=== PATIENT | male | born 1970 | race Caucasian/White ===

== ENCOUNTER 2018-12-26 11:55 | Inpatient (IN) | payer OTHER ==
[2018-12-26 14:59] VITALS: BMI 28.7
--- NOTE | 2018-12-26 18:16 | HP ---
CIWA Score Nausea/Vomitin (vomiting x 2) Muscle Tremors: 4-Moderate,w/Arms Extend Anxiety: 4-Mod. Anxious/Guarded Agitation: 4-Moderately Restless Paroxysmal Sweats: 3 Orientation: 0-Oriented Tacttile Disturbances: 0-None Auditory Disturbances: 0-None Visual Disturbances: 0-None Headache: 0-None Present CIWA-Ar Total Score: 17 - Admission Criteria OASAS Guidelines: Admission for Medically Managed Detox: Requires at least one of the followin. CIWA greater than 12 2. Seizures within the past 24 hours 3. Delirium tremens within the past 24 hours 4. Hallucinations within the past 24 hours 5. Acute intervention needed for co occurring medical disorder 6. Acute intervention needed for co occurring psychiatric disorder 7. Severe withdrawal that cannot be handled at a lower level of care (continued vomiting, continued diarrhea, abnormal vital signs) requiring intravenous medication and/or fluids 8. Admission ROS [facility] - [facility] Chief Complaint: Alcohol withdrawal symptoms Allergies/Adverse Reactions: Allergies Allergy/AdvReac Type Severity Reaction Status Date / Time No Known Allergies Allergy Verified 12/26/18 14:56 History of Present Illness: 48 years old male male with 30 years of alcohol dependence is seeking admission to detox. Patient has been in previous detox and reports insignificant period of sobriety. He states that he had blackouts from alcohol intoxication. He denies past medical history, suicide attempt and suicidal ideation at this time. This is his first admission to [facility] Exam Limitations: No Limitations - Ebola screening Have you traveled outside of the country in the last 21 days: No (N) Have you had contact with anyone from an Ebola affected area: No Do you have a fever: No - Review of Systems Constitutional: Chills, Loss of Appetite, Malaise, Night Sweats, Changes in sleep EENT: reports: No Symptoms Reported Respiratory: reports: No Symptoms reported Cardiac: reports: No Symptoms Reported GI: reports: Diarrhea, Nausea, Poor Fluid Intake, Abdominal cramping : reports: No Symptoms Reported Musculoskeletal: reports: Back Pain Integumentary: reports: Dryness, Flushing Neuro: reports: Tremors Endocrine: reports: No Symptoms Reported Hematology: reports: No Symptoms Reported Psychiatric: reports: Orientated x3, Anxious Other Systems: Reviewed and Negative Patient History - Patient Medical History Hx Anemia: No Hx Asthma: No Hx Chronic Obstructive Pulmonary Disease (COPD): No Hx Cancer: No Hx Cardiac Disorders: No Hx Congestive Heart Failure: No Hx Hypertension: No Hx Hypercholesterolemia: No Hx Pacemaker: No HX Cerebrovascular Accident: No Hx Seizures: No Hx Dementia: No Hx Diabetes: No Hx Gastrointestinal Disorders: No Hx Liver Disease: No Hx Genitourinary Disorders: No Hx Sexually Transmitted Disorders: No Hx Renal Disease (ESRD): No Hx Thyroid Disease: No Hx Human Immunodeficiency Virus (HIV): No (Negative 2019) Hx Hepatitis C: No Hx Depression: No Hx Suicide Attempt: No (Denies suicide attempt/suicidal ideation at this time) Hx Bipolar Disorder: No Hx Schizophrenia: No - Patient Surgical History Past Surgical History: Yes Hx Appendectomy: Yes (At age 5) - PPD History Previous Implant?: Yes Documented Results: Negative w/o proof Implanted On Prior [facility] Admission?: No PPD to be Administered?: Yes - Reproductive History Patient is a Female of Child Bearing Age (11 -55 yrs old): No (male) - Smoking Cessation Smoking history: Current every day smoker Have you smoked in the past 12 months: Yes Aproximately how many cigarettes per day: 5 Hx Chewing Tobacco Use: No Initiated information on smoking cessation: Yes 'Breaking Loose' booklet given: 12/26/18 - Substance & Tx. History Hx Alcohol Use: Yes Hx Substance Use: Yes Substance Use Type: Alcohol, Cocaine, Marijuana Hx Substance Use Treatment: Yes ([facility]) - Substances abused Alcohol Substance route: Oral Frequency: Daily Amount used: 2 ( 6packs) Age of first use: 18 Date of last use: 12/25/18 Family Disease History - Family Disease History Family History: Denies Admission Physical Exam [facility] - Vital Signs Vital Signs: Vital Signs - 24 hr 12/26/18 12/26/18 14:56 17:26 Temperature 97.7 F 97.7 F Pulse Rate 78 78 Respiratory 78 H 78 H Rate Blood Pressure 132/80 132/80 - Physical General Appearance: Yes: Moderate Distress, Tremorous, Irritable, Sweating HEENTM: Yes: Within Normal Limits Respiratory: Yes: Lungs Clear, Normal Breath Sounds, No Respiratory Distress Neck: Yes: Supple Breast: Yes: Breast Exam Deferred Cardiology: Yes: Regular Rhythm, Regular Rate Abdominal: Yes: Normal Bowel Sounds Genitourinary: Yes: Within Normal Limits Back: Yes: Normal Inspection Musculoskeletal: Yes: Within Normal Limits Extremities: Yes: Tremors Neurological: Yes: Within Normal Limits, Normal Mood/Affect Integumentary: Yes: Warm Lymphatic: Yes: Within Normal Limits - Diagnostic (1) Alcohol dependence with uncomplicated withdrawal Current Visit: Yes Status: Acute (2) Nicotine dependence Current Visit: Yes Status: Chronic Qualifiers: Nicotine product type: cigarettes Substance use status: uncomplicated Qualified Code(s): F17.210 - Nicotine dependence, cigarettes, uncomplicated (3) Cannabis abuse, uncomplicated Current Visit: Yes Status: Chronic (4) Cocaine abuse, uncomplicated Current Visit: Yes Status: Chronic Cleared for Admission S - Detox or Rehab [facility] Level of Care: Medically Managed Detox Regimen/Protocol: Librium Breathalyzer - Breathalyzer Breathalyzer: 0 Urine Drug Screen - Test Device Lot number: [id number] Expiration date: 08/26/20 - Control Is test valid?: Yes - Results Drug screen NEGATIVE: No Urine drug screen results: THC-Marijuana, KLARISSA-Cocaine Inpatient Rehab Admission - Rehab Decision to Admit Inpatient rehab admission?: No
[2018-12-26] MEDS ORDERED: MAGNESIUM HYDROX 2400MG/30ML ORAL SUSPENSION 30 ML CUP PO PRN (18:23)
[2018-12-26] MEDS ORDERED: ACETAMINOPHEN 325 MG TABLET (FP) PO PRN ×2 (18:23)
[2018-12-26] MEDS ORDERED: METHOCARBAMOL 500 MG TABLET PO PRN (18:23)
[2018-12-26] MEDS ORDERED: hydrOXYzine PAMOATE 25 MG CAPSULE (FP) PO PRN (18:23)
[2018-12-26] MEDS ORDERED: MAGNESIUM CITRATE 300 ML BOTTLE PO PRN (18:23)
[2018-12-26] MEDS ORDERED: BISMUTH SUBSALICYLATE 524 MG/30 ML UD PO PRN (18:23)
[2018-12-26] MEDS ORDERED: IBUPROFEN 400 MG TABLET (FP) PO PRN (18:23)
[2018-12-26] MEDS ORDERED: MAG HYDROX/AL HYDROX/SIMETH 30 ML UNIT-DOSE CUP PO PRN (18:23)
[2018-12-26] MEDS ORDERED: MENTHOL/PHENOL 1 EACH UD MM PRN (18:23)
[2018-12-26] MEDS ORDERED: NICOTINE POLACRILEX 2 MG GUM BUC PRN (18:23)
[2018-12-26] MEDS ORDERED: chlordiazePOXIDE HCL 25 MG CAPSULE PO PRN (18:23)
[2018-12-26] MEDS: chlordiazePOXIDE HCL 25 MG CAPSULE PO SCH (23:53)
[2018-12-26] MEDS: THIAMINE HCL 100 MG TABLET (FP) PO SCH (23:53)
[2018-12-27] MEDS: chlordiazePOXIDE HCL 25 MG CAPSULE PO SCH ×4 (05:17→22:16)
[2018-12-27] MEDS: NICOTINE 14 MG/24 HOURS TOPICAL PATCH TD SCH (10:22)
[2018-12-27] MEDS: PRENATAL VITAMINS W/ FOLIC ACID TABLET (FP) PO SCH (10:22)
[2018-12-27 10:34] LABS: ALBUMIN 3.2 g/dl (3.4-5.0); BILIRUBIN,TOTAL 0.5 mg/dL (0.2-1); BLOOD UREA NITROGEN 13.3 mg/dL (7-18); CREATININE 0.9 mg/dL (0.55-1.3); POTASSIUM 3.7 mmol/L (3.5-5.1); TOT PROT 6.7 g/dl (6.4-8.2)
[2018-12-27 10:50] LABS: HEMATOCRIT 40.8 % (35.4-49); HEMOGLOBIN 13.5 GM/dL (11.7-16.9); MCH 29.1 pg (25.7-33.7); MCHC 33.1 g/dl (32.0-35.9); MEAN CELL VOLUME 87.9 fl (80-96); MEAN PLT VOLUME 10.6 fl (7.5-11.1); PLATELET COUNT 250 K/MM3 (134-434); RBC 4.64 M/mm3 (4.00-5.60); RDW 14.1 % (11.9-15.9); WHITE BLOOD COUNT 5.5 K/mm3 (4.0-10.0)
--- NOTE | 2018-12-27 13:15 | PN ---
[facility] CIWA - CIWA Score Nausea/Vomitin-No Nausea/No Vomiting Muscle Tremors: 3 Anxiety: 2 Agitation: 3 Paroxysmal Sweats: 3 Orientation: 0-Oriented Tacttile Disturbances: 0-None Auditory Disturbances: 0-None Visual Disturbances: 0-None Headache: 0-None Present CIWA-Ar Total Score: 11 S Progress Note (SOAP) Subjective: sweats mild shakes agitation Objective: 12/27/18 13:14 Vital Signs Temperature 97.7 F 12/27/18 13:06 Pulse Rate 83 12/27/18 13:06 Respiratory Rate 18 12/27/18 13:06 Blood Pressure 110/56 L 12/27/18 13:06 O2 Sat by Pulse Oximetry (%) Laboratory Tests 12/27/18 12/27/18 12/27/18 07:00 07:00 07:00 WBC 5.5 RBC 4.64 Hgb 13.5 Hct 40.8 MCV 87.9 MCH 29.1 MCHC 33.1 RDW 14.1 Plt Count 250 MPV 10.6 Sodium 140 Potassium 3.7 Chloride 104 Carbon Dioxide 30 Anion Gap 6 L BUN 13.3 Creatinine 0.9 Est GFR (CKD-EPI)AfAm 116.65 Est GFR (CKD-EPI)NonAf 100.64 Random Glucose 98 Calcium 8.0 L Total Bilirubin 0.5 AST 14 L ALT 30 Alkaline Phosphatase 63 Total Protein 6.7 Albumin 3.2 L RPR Titer Nonreactive labs noted aaox3 ambulating no acute distress Assessment: 12/27/18 13:14 withdrawal sx Plan: continue detox increase fluids
[2018-12-27] MEDS: THIAMINE HCL 100 MG TABLET (FP) PO SCH (22:16)
[2018-12-27] MEDS: MELATONIN 5 MG TABLETS PO PRN (22:16)
[2018-12-28] MEDS: chlordiazePOXIDE HCL 25 MG CAPSULE PO SCH ×3 (06:08→17:48)
[2018-12-28] MEDS: PRENATAL VITAMINS W/ FOLIC ACID TABLET (FP) PO SCH (10:25)
[2018-12-28] MEDS: NICOTINE 14 MG/24 HOURS TOPICAL PATCH TD SCH (10:25)
[2018-12-28] MEDS ORDERED: ONDANSETRON *ODT* 4 MG TABLET SL PRN (11:54)
--- NOTE | 2018-12-28 11:55 | PN ---
[facility] CIWA - CIWA Score Nausea/Vomitin-No Nausea/No Vomiting Muscle Tremors: 4-Moderate,w/Arms Extend Anxiety: 2 Agitation: 3 Paroxysmal Sweats: 2 Orientation: 0-Oriented Tacttile Disturbances: 0-None Auditory Disturbances: 0-None Visual Disturbances: 0-None Headache: 0-None Present CIWA-Ar Total Score: 11 S Progress Note (SOAP) Subjective: nausea agitation sweats body aches Objective: 12/28/18 11:55 Vital Signs Temperature 97.8 F 12/28/18 09:35 Pulse Rate 78 12/28/18 09:35 Respiratory Rate 18 12/28/18 09:35 Blood Pressure 131/83 12/28/18 09:35 O2 Sat by Pulse Oximetry (%) Laboratory Tests 12/27/18 12/27/18 12/27/18 07:00 07:00 07:00 WBC 5.5 RBC 4.64 Hgb 13.5 Hct 40.8 MCV 87.9 MCH 29.1 MCHC 33.1 RDW 14.1 Plt Count 250 MPV 10.6 Sodium 140 Potassium 3.7 Chloride 104 Carbon Dioxide 30 Anion Gap 6 L BUN 13.3 Creatinine 0.9 Est GFR (CKD-EPI)AfAm 116.65 Est GFR (CKD-EPI)NonAf 100.64 Random Glucose 98 Calcium 8.0 L Total Bilirubin 0.5 AST 14 L ALT 30 Alkaline Phosphatase 63 Total Protein 6.7 Albumin 3.2 L RPR Titer Nonreactive labs noted aaox3 ambulating no acute distress Assessment: 12/28/18 11:55 withdrawal sx Plan: continue detox increase fluids rosalba wadsworth prn
--- NOTE | 2018-12-28 13:48 | EKG ---
Test Reason : Blood Pressure : / mmHG Vent. Rate : 065 BPM Atrial Rate : 065 BPM P-R Int : 124 ms QRS Dur : 090 ms QT Int : 432 ms P-R-T Axes : 013 037 030 degrees QTc Int : 449 ms NORMAL SINUS RHYTHM NORMAL ECG NO PREVIOUS ECGS AVAILABLE Confirmed by MD CEDRIC, COLT ([id number]) on 12/28/2018 1:47:49 PM Referred By: Confirmed By:COLT STEELE MD
[2018-12-28] MEDS: THIAMINE HCL 100 MG TABLET (FP) PO SCH (22:22)
[2018-12-28] MEDS: MELATONIN 5 MG TABLETS PO PRN (22:22)
[2018-12-28] MEDS: chlordiazePOXIDE HCL 10 MG CAPSULE PO SCH (22:23)
[2018-12-28] MEDS ORDERED: chlordiazePOXIDE HCL 10 MG CAPSULE PO PRN (23:00)
[2018-12-29] MEDS: chlordiazePOXIDE HCL 10 MG CAPSULE PO SCH ×4 (06:21→22:23)
[2018-12-29] MEDS: PRENATAL VITAMINS W/ FOLIC ACID TABLET (FP) PO SCH (10:33)
[2018-12-29] MEDS: NICOTINE 14 MG/24 HOURS TOPICAL PATCH TD SCH (10:35)
--- NOTE | 2018-12-29 13:40 | PN ---
[facility] CIWA - CIWA Score Nausea/Vomitin-No Nausea/No Vomiting Muscle Tremors: 2 Anxiety: 3 Agitation: 2 Paroxysmal Sweats: 1-Minimal Palms Moist Orientation: 0-Oriented Tacttile Disturbances: 0-None Auditory Disturbances: 0-None Visual Disturbances: 0-None Headache: 0-None Present CIWA-Ar Total Score: 8 [facility] Progress Note (SOAP) Subjective: C/O MILD WITHDRAWAL SX-ANXIETY, SWEATS,TREMORS. Objective: 12/29/18 13:39 Vital Signs 12/29/18 12/29/18 12/29/18 08:16 09:36 13:20 Temperature 98.2 F 97.8 F 96.9 F L Pulse Rate 72 88 91 H Respiratory 18 18 18 Rate Blood Pressure 128/60 120/64 115/73 Laboratory Tests 12/27/18 12/27/18 12/27/18 07:00 07:00 07:00 WBC 5.5 RBC 4.64 Hgb 13.5 Hct 40.8 MCV 87.9 MCH 29.1 MCHC 33.1 RDW 14.1 Plt Count 250 MPV 10.6 Sodium 140 Potassium 3.7 Chloride 104 Carbon Dioxide 30 Anion Gap 6 L BUN 13.3 Creatinine 0.9 Est GFR (CKD-EPI)AfAm 116.65 Est GFR (CKD-EPI)NonAf 100.64 Random Glucose 98 Calcium 8.0 L Total Bilirubin 0.5 AST 14 L ALT 30 Alkaline Phosphatase 63 Total Protein 6.7 Albumin 3.2 L RPR Titer TB (QFT) Incubation TB Test (QFT) Nil 0.03 TB Test (QFT) Mitogen >10.00 TB Test (QFT) Antigen 0.04 TB Test (QFT) Negative TB Positive Criteria 12/27/18 07:00 WBC RBC Hgb Hct MCV MCH MCHC RDW Plt Count MPV Sodium Potassium Chloride Carbon Dioxide Anion Gap BUN Creatinine Est GFR (CKD-EPI)AfAm Est GFR (CKD-EPI)NonAf Random Glucose Calcium Total Bilirubin AST ALT Alkaline Phosphatase Total Protein Albumin RPR Titer Nonreactive TB (QFT) Incubation TB Test (QFT) Nil TB Test (QFT) Mitogen TB Test (QFT) Antigen TB Test (QFT) TB Positive Criteria Assessment: 12/29/18 13:39 WITHDRAWAL SX Plan: CONTINUE DETOX
[2018-12-29] MEDS: THIAMINE HCL 100 MG TABLET (FP) PO SCH (22:23)
[2018-12-30] MEDS: NICOTINE 14 MG/24 HOURS TOPICAL PATCH TD SCH (10:10)
[2018-12-30] MEDS: PRENATAL VITAMINS W/ FOLIC ACID TABLET (FP) PO SCH (10:10)
[2018-12-30] MEDS: chlordiazePOXIDE HCL 10 MG CAPSULE PO SCH ×2 (10:10→22:10)
--- NOTE | 2018-12-30 10:34 | PN ---
[facility] CIWA - CIWA Score Nausea/Vomitin-No Nausea/No Vomiting Muscle Tremors: 2 Anxiety: 1-Mildly Anxious Agitation: 0-Normal Activity Paroxysmal Sweats: 2 Orientation: 0-Oriented Tacttile Disturbances: 0-None Auditory Disturbances: 0-None Visual Disturbances: 0-None Headache: 2-Mild CIWA-Ar Total Score: 7 [facility] Progress Note (SOAP) Subjective: c/o headache, mild anxiety, and sweats. Objective: 12/30/18 10:34 Vital Signs 12/30/18 12/30/18 12/30/18 03:30 06:00 09:25 Temperature 98.1 F 98.4 F Pulse Rate 78 82 Respiratory 18 18 18 Rate Blood Pressure 115/75 115/60 Assessment: 12/30/18 10:34 AOX3, in no acute respiratory distress Full ROM, ambulating in the unit. mild withdrawal symptoms. Plan: continue detox.
[2018-12-30] MEDS: MELATONIN 5 MG TABLETS PO PRN (22:10)
[2018-12-30] MEDS: THIAMINE HCL 100 MG TABLET (FP) PO SCH (22:10)
--- NOTE | 2018-12-31 09:05 | DS ---
[facility] Detox Discharge Summary Admission Date: 12/26/18 Discharge Date: 12/31/18 - History Present History: Alcohol Dependence, Cannabis Dependence, Cocaine Dependence - Physical Exam Results Vital Signs: Vital Signs Temperature 97.2 F L 12/31/18 06:40 Pulse Rate 76 12/31/18 06:40 Respiratory Rate 16 12/31/18 06:40 Blood Pressure 115/70 12/31/18 06:40 O2 Sat by Pulse Oximetry (%) - Treatment Hospital Course: Detox Protocol Followed, Detoxed Safely, Responded well, Discharged Condition Good - Medication Discharge Medications: Ambulatory Orders NK [No Known Home Medication] 12/26/18 - Diagnosis (1) Alcohol dependence with uncomplicated withdrawal Current Visit: Yes Status: Chronic (2) Cannabis abuse, uncomplicated Current Visit: Yes Status: Chronic (3) Cocaine abuse, uncomplicated Current Visit: Yes Status: Chronic (4) Nicotine dependence Current Visit: Yes Status: Chronic Qualifiers: Nicotine product type: cigarettes Substance use status: uncomplicated Qualified Code(s): F17.210 - Nicotine dependence, cigarettes, uncomplicated - AMA Did Patient Leave Against Medical Advice: No
[2018-12-31] MEDS: NICOTINE 14 MG/24 HOURS TOPICAL PATCH TD SCH (10:35)
[2018-12-31] MEDS: PRENATAL VITAMINS W/ FOLIC ACID TABLET (FP) PO SCH (10:35)
[2018-12-31 14:08] VITALS: BP 126/64; PULSE 86; TEMP 97.6
== END 2018-12-31 13:50 | disposition other institution (70) | DRG 774 ==
LOC: YASAS 11:55 → Y6N 18:04
PROVIDERS: ADMIT Surgery; ATTEND Surgery
PROC: HZ2ZZZZ Detoxification Services for Substance Abuse Treatment (ICD-10-PCS; principal; 2018-12-26)
DX: F10.230 Alcohol dependence with withdrawal, uncomplicated (principal); F14.20 Cocaine dependence, uncomplicated; F12.20 Cannabis dependence, uncomplicated; F17.210 Nicotine dependence, cigarettes, uncomplicated
CPT/HCPCS: 36415; 80053; 85027; 86480; 86593; 93005; 93010

== ENCOUNTER 2018-12-31 14:00 | Inpatient (IN) | payer OTHER ==
[2018-12-31] MEDS ORDERED: guaiFENesin 200 MG/10 ML 10 ML UNIT-DOSE CUPS PO PRN (15:46)
[2018-12-31] MEDS ORDERED: MENTHOL/PHENOL 1 EACH UD MM PRN (15:46)
[2018-12-31] MEDS ORDERED: MAG HYDROX/AL HYDROX/SIMETH 30 ML UNIT-DOSE CUP PO PRN (15:46)
[2018-12-31] MEDS ORDERED: P-EPHED 60MG/TRIPROLIDI 2.5MG TABLET PO PRN (15:46)
[2018-12-31] MEDS ORDERED: IBUPROFEN 400 MG TABLET (FP) PO PRN (15:46)
[2018-12-31] MEDS ORDERED: MAGNESIUM CITRATE 300 ML BOTTLE PO PRN (15:46)
[2018-12-31] MEDS ORDERED: MAGNESIUM HYDROX 2400MG/30ML ORAL SUSPENSION 30 ML CUP PO PRN (15:46)
[2018-12-31] MEDS ORDERED: ACETAMINOPHEN 325 MG TABLET (FP) PO PRN (15:46)
[2018-12-31] MEDS ORDERED: LOPERAMIDE HCL 2 MG CAPSULE PO PRN (15:46)
[2018-12-31] MEDS: THIAMINE HCL 100 MG TABLET (FP) PO SCH (21:33)
[2018-12-31] MEDS: hydrOXYzine PAMOATE 25 MG CAPSULE (FP) PO PRN (21:33)
[2018-12-31] MEDS: MELATONIN 5 MG TABLETS PO PRN (21:34)
[2019-01-01] MEDS: PRENATAL VITAMINS W/ FOLIC ACID TABLET (FP) PO SCH (10:24)
[2019-01-01] MEDS: MELATONIN 5 MG TABLETS PO PRN (21:35)
[2019-01-01] MEDS: hydrOXYzine PAMOATE 25 MG CAPSULE (FP) PO PRN (21:35)
[2019-01-01] MEDS: THIAMINE HCL 100 MG TABLET (FP) PO SCH (21:35)
[2019-01-02] MEDS ORDERED: PT OWN MED DRAWER 7, Y5N ONE (08:34)
[2019-01-02] MEDS: PRENATAL VITAMINS W/ FOLIC ACID TABLET (FP) PO SCH (10:42)
[2019-01-02] MEDS: hydrOXYzine PAMOATE 25 MG CAPSULE (FP) PO PRN (21:26)
[2019-01-02] MEDS: THIAMINE HCL 100 MG TABLET (FP) PO SCH (21:26)
[2019-01-02] MEDS: MELATONIN 5 MG TABLETS PO PRN (21:27)
[2019-01-03] MEDS: PRENATAL VITAMINS W/ FOLIC ACID TABLET (FP) PO SCH (10:32)
[2019-01-03] MEDS ORDERED: SUVOREXANT 10 MG TABLET PO PRN (13:27)
--- NOTE | 2019-01-03 13:30 | PN ---
[facility] Progress Note Note: Patient seen for c/o insomnia. Patient has hx of cocaine use disorder. Vital Signs Temperature 98 F 01/03/19 06:47 Pulse Rate 80 01/03/19 06:47 Respiratory Rate 18 01/03/19 06:47 Blood Pressure 113/63 01/03/19 06:47 O2 Sat by Pulse Oximetry (%) PE alert and oriented x 3 skin warm and dry +perrla, eoms intact bl A/P: insomnia will order Belsomra 10mg hs prn monitor clinically
[2019-01-03] MEDS: MELATONIN 5 MG TABLETS PO PRN (22:20)
[2019-01-03] MEDS: THIAMINE HCL 100 MG TABLET (FP) PO SCH (22:37)
[2019-01-04] MEDS: PRENATAL VITAMINS W/ FOLIC ACID TABLET (FP) PO SCH (10:41)
--- NOTE | 2019-01-04 14:46 | PN ---
S Progress Note (SOAP) Subjective: C/o insomnia; unable to sleep. Was prescribed Belsoma, but states it does not work he was not able to fall asleep and was restless all night. Reports that insomnia is a result of years of using crack cocaine. Objective: A+O x3, no neurological deficits noted. PERRLA. 01/04/19 14:43 01/04/19 14:44 Vital Signs (72 hours) 01/02/19 01/02/19 01/03/19 03:30 06:59 03:30 Temperature 98.2 F Pulse Rate 85 Respiratory 18 18 18 Rate Blood Pressure 97/61 01/03/19 01/04/19 01/04/19 06:47 00:30 03:30 Temperature 98 F Pulse Rate 80 Respiratory 18 18 18 Rate Blood Pressure 113/63 01/04/19 07:08 Temperature 97.6 F Pulse Rate 79 Respiratory 18 Rate Blood Pressure 101/71 Assessment: Insomnia 01/04/19 14:43 Plan: Increased melatonin to 10 mg. Continue to monitor and will refer for psych consult if insomnia does not resolve.
[2019-01-04] MEDS: THIAMINE HCL 100 MG TABLET (FP) PO SCH (21:18)
[2019-01-04] MEDS: MELATONIN 5 MG TABLETS PO PRN (21:19)
[2019-01-05] MEDS: PRENATAL VITAMINS W/ FOLIC ACID TABLET (FP) PO SCH (10:46)
--- NOTE | 2019-01-05 15:35 | PN ---
S Progress Note (SOAP) Subjective: patient fell-slipped on wet floor. Unwitnessed. C/o pain in left wrist and a headache. Objective: ARM: Pain on flexion of left wrist. No swelling noted. HEAD/Neuro: eyes PERRLA, A+O x3, no neurological deficits noted. 01/05/19 15:31 Assessment: Unwitnessed fall, 01/05/19 15:33 Plan: Protocol 1 for unwitnessed fall was initiated. Report was given to Dr. Pate at [facility] ER. Patient will be transferred to ER for evaluation.
--- NOTE | 2019-01-05 16:07 | CONSULT ---
[facility] Psychiatric Consult - Data Date of interview: 01/05/19 Admission source: 6N Identifying data: Mr Montes De Oca is a 48 years old single male, father of, unemployed seeking detox treatment for alcohol Substance Abuse History: Reports history of alcohol use. Refer to addiction counselor's summary for further information Medical History: Significant for history of appendectomy at age 5. Smokes 5 cigarettes daily
[2019-01-05] MEDS: THIAMINE HCL 100 MG TABLET (FP) PO SCH (22:09)
[2019-01-05] MEDS: MELATONIN 5 MG TABLETS PO PRN (22:09)
[2019-01-05] MEDS: IBUPROFEN 600 MG TABLET (FP) PO PRN (23:17)
--- NOTE | 2019-01-06 10:17 | PN ---
S Progress Note (SOAP) Subjective: Patient was sent to ER yesterday after unwitnessed fall in which he hit his head and left wrist. He was evaluated in the ER and returned with a brace to left lower arm. Objective: PE; skin, clear, no ecchymotic areas, some swelling around wrist and thumb area. Brisk capillary refill all fingers of left had. Full ROM fingers and thumb. Wrist stabilized by a brace. Slight tenderness on palpation, anterior, medial aspect between thumb and first finger. 01/06/19 10:14 Assessment: Left wrist injury 01/06/19 10:16 Plan: Continue to monitor, advised patient to inform nurses or this provider if he experiences pain or changes in color of left hand, wrist, or thumb.
[2019-01-06] MEDS: PRENATAL VITAMINS W/ FOLIC ACID TABLET (FP) PO SCH (10:23)
[2019-01-06] MEDS: IBUPROFEN 600 MG TABLET (FP) PO PRN ×2 (10:24→21:39)
[2019-01-06] MEDS: SUVOREXANT 10 MG TABLET PO PRN (21:39)
[2019-01-06] MEDS: MELATONIN 5 MG TABLETS PO PRN (21:39)
[2019-01-06] MEDS: THIAMINE HCL 100 MG TABLET (FP) PO SCH (21:39)
[2019-01-07] MEDS: PRENATAL VITAMINS W/ FOLIC ACID TABLET (FP) PO SCH (10:10)
[2019-01-07] MEDS: IBUPROFEN 600 MG TABLET (FP) PO PRN (21:42)
[2019-01-07] MEDS: MELATONIN 5 MG TABLETS PO PRN (21:43)
[2019-01-07] MEDS: SUVOREXANT 10 MG TABLET PO PRN (21:43)
[2019-01-07] MEDS: THIAMINE HCL 100 MG TABLET (FP) PO SCH (21:43)
[2019-01-08] MEDS: PRENATAL VITAMINS W/ FOLIC ACID TABLET (FP) PO SCH (10:28)
--- NOTE | 2019-01-08 14:08 | PN ---
[facility] Progress Note Note: Psychiatric nurse practitioner note: Belsomra 10mg renewed X3 days. Verbal consent given.
[2019-01-08] MEDS: THIAMINE HCL 100 MG TABLET (FP) PO SCH (21:26)
[2019-01-08] MEDS: SUVOREXANT 10 MG TABLET PO PRN (21:27)
[2019-01-08] MEDS: IBUPROFEN 600 MG TABLET (FP) PO PRN (21:27)
[2019-01-08] MEDS: MELATONIN 5 MG TABLETS PO PRN (21:28)
[2019-01-09] MEDS: PRENATAL VITAMINS W/ FOLIC ACID TABLET (FP) PO SCH (10:49)
[2019-01-09] MEDS: MELATONIN 5 MG TABLETS PO PRN (22:12)
[2019-01-09] MEDS: THIAMINE HCL 100 MG TABLET (FP) PO SCH (22:12)
[2019-01-09] MEDS: SUVOREXANT 10 MG TABLET PO PRN (22:13)
[2019-01-09] MEDS: IBUPROFEN 600 MG TABLET (FP) PO PRN (22:14)
[2019-01-10 07:08] VITALS: BP 141/68; PULSE 69; TEMP 97.7
[2019-01-10] MEDS: PRENATAL VITAMINS W/ FOLIC ACID TABLET (FP) PO SCH (10:38)
--- NOTE | 2019-01-10 12:14 | PN ---
[facility] Progress Note Note: Rehab discharge note: Patient discharged from rehab today after completing 8 days inpatient. Patient states he wants to leave because " I am getting bored here. I have done everything I needed to do." Vital Signs Temperature 97.7 F 01/10/19 07:07 Pulse Rate 69 01/10/19 07:07 Respiratory Rate 18 01/10/19 07:07 Blood Pressure 141/68 01/10/19 07:07 O2 Sat by Pulse Oximetry (%) Patient states he will follow up with outpatient treatment on his own and will attend AA/NA group meetings. Patient explained risk factors of relapse and also encouraged to follow up with PCP within 72 hours of discharge to continue medical management. Patient is medically stable at this time and denies SI/HI. Vital Signs Period Temp Pulse Resp BP Sys/Zaragoza Pulse Ox Last 24 Hr 97.7 F 69 18-18 141/68 Ambulatory Orders NK [No Known Home Medication] 12/26/18
== END 2019-01-10 12:20 | disposition home or self-care (01) | DRG 772 ==
LOC: YASAS 14:00 → Y3W 14:01
PROVIDERS: ADMIT Neuromusculoskeletal Medicine & OMM; ATTEND Neuromusculoskeletal Medicine & OMM
PROC: HZ42ZZZ Group Counseling for Substance Abuse Treatment, Cognitive-Behavioral (ICD-10-PCS; principal; 2018-12-31)
DX: F10.20 Alcohol dependence, uncomplicated (principal); F14.10 Cocaine abuse, uncomplicated; F12.10 Cannabis abuse, uncomplicated; F17.210 Nicotine dependence, cigarettes, uncomplicated; G47.00 Insomnia, unspecified; R51 Headache; S69.92XA Unspecified injury of left wrist, hand and finger(s), initial encounter; W18.39XA Other fall on same level, initial encounter; Y93.9 Activity, unspecified; Y92.239 Unspecified place in hospital as the place of occurrence of the external cause

== ENCOUNTER 2019-01-05 17:19 | Emergency (ER) | payer OTHER ==
[2019-01-05] MEDS ORDERED: ACETAMINOPHEN 500 MG TABLET (FP) PO ONE (17:25)
--- NOTE | 2019-01-05 17:25 | PDOC ---
Rapid Medical Evaluation Time Seen by Provider: 01/05/19 17:20 Medical Evaluation: Allergies Allergy/AdvReac Type Severity Reaction Status Date / Time No Known Allergies Allergy Verified 12/31/18 14:31 01/05/19 17:23 HPI: slip on wet floor no LOC or head trauma c/o L wrist pain PE: No gross deficits L wrist tenderness ORDERS: L wrist x-ray Tylenol 01/05/19 17:25 Discharge Disposition - Diagnosis Left wrist injury - Referrals - Patient Instructions - Post Discharge Activity
[2019-01-05 17:28] VITALS: BP 125/77; PULSE 66; TEMP 98.3; BMI 28.7
[2019-01-05] MEDS ORDERED: ACETAMINOPHEN 500 MG TABLET (FP) ONE (17:36)
--- NOTE | 2019-01-05 19:20 | PDOC ---
History of Present Illness - General Chief Complaint: Injury Stated Complaint: FALL/INJURY Time Seen by Provider: 01/05/19 17:20 History Source: Patient Exam Limitations: No Limitations Past History - Travel Traveled outside of the country in the last 30 days: No Close contact w/someone who was outside of country & ill: No - Past Medical History Allergies/Adverse Reactions: Allergies Allergy/AdvReac Type Severity Reaction Status Date / Time No Known Allergies Allergy Verified 01/05/19 17:24 Home Medications: Ambulatory Orders NK [No Known Home Medication] 12/26/18 Anemia: No Asthma: No Cancer: No Cardiac Disorders: No CVA: No COPD: No CHF: No Dementia: No Diabetes: No GI Disorders: No Disorders: No HTN: No Hypercholesterolemia: No Liver Disease: No Seizures: No Thyroid Disease: No - Surgical History Appendectomy: Yes (At age 5) - Suicide/Smoking/Psychosocial Hx Smoking History: Unknown if ever smoked Have you smoked in the past 12 months: Yes Number of Cigarettes Smoked Daily: 5 'Breaking Loose' booklet given: 12/26/18 Hx Alcohol Use: Yes Drug/Substance Use Hx: Yes Substance Use Type: Alcohol, Cocaine, Marijuana Hx Substance Use Treatment: Yes ([facility]) Review of Systems - Review of Systems Able to Perform ROS?: Yes Comments:: 01/05/19 19:15 CONSTITUTIONAL: Absent: fever, chills, diaphoresis, generalized weakness, malaise, loss of appetite MUSCULOSKELETAL: Present: L wrist and shoulder pain Absent: myalgia, arthralgia, joint swelling SKIN: Absent: rash, itching, pallor NEUROLOGIC: Absent: headache, focal weakness or paresthesias, dizziness, unsteady gait, seizure, mental status changes, bladder or bowel incontinence PSYCHIATRIC: Absent: anxiety, depression, suicidal or homicidal ideation, hallucinations. Is the patient limited Japanese proficient: No *Physical Exam - Vital Signs Last Vital Signs Temp Pulse Resp BP Pulse Ox 98.3 F 66 16 125/77 99 01/05/19 17:25 01/05/19 17:25 01/05/19 17:25 01/05/19 17:25 01/05/19 17:25 - Physical Exam Comments: 01/05/19 19:17 GENERAL: Well developed, well nourished. Awake and alert. No acute distress. NECK: Supple. Full ROM. No JVD. Carotid pulses 2+ and symmetric, without bruits. No thyromegaly. No lymphadenopathy. MUSCULOSKELETAL Normal range of motion at all joints. No bony deformities or tenderness. No CVA tenderness. EXTREMITIES: TTP of the L distal radius. No snuff box tenderness. L shoulder without pain to palpation. Full ROM of the shoulder. PMS intact to the L arm. No cyanosis. No clubbing. No edema. No calf tenderness. SKIN: Warm and dry. Normal capillary refill. No rashes. No jaundice. NEUROLOGICAL: Alert, awake, appropriate. Cranial nerves 2-12 intact. No deficits to light touch and temperature in face, upper extremities and lower extremities. No motor deficits in the in face, upper extremities and lower extremities. Normoreflexic in the upper and lower extremities. Normal speech. Toes are down- going bilaterally. Gait is normal without ataxia. PSYCHIATRIC: Cooperative. Good eye contact. Appropriate mood and affect. ED Treatment Course - RADIOLOGY Radiology Studies Ordered: Category Date Time Status SHOULDER-W/TRANS-LEFT [RAD] Stat Radiology 01/05/19 18:43 Completed - Medications Given in the ED: ED Medications Discontinued Medications Generic Name Dose Route Start Last Admin Trade Name Freq PRN Reason Stop Dose Admin Acetaminophen 1,000 mg 01/05/19 17:25 01/05/19 17:40 Tylenol - PO 01/05/19 17:26 1,000 mg ONCE ONE Administration Medical Decision Making - Medical Decision Making 01/05/19 19:19 the patient is a 48-year-old male currently in rehab, who presents to the ER today after a [facility]. He states that he slipped on a wet floor and landed on his wrist. Denies hitting his head or losing consciousness. He states that when he brace itself he also felt something in his shoulder snap. Denies fevers, chills, lightheadedness, dizziness, numbness and tingling of weakness to the affected extremity. A/P: Wrist sprain, On exam patient tender to palpation of the distal left radius. No snuffbox tenderness. Decreased range of motion with extension of the left wrist. Shoulder left is intact. Full range of motion, all special testing is negative. Suspect a wrist sprain as the x-ray at this time is negative for fractures. We will place an wrist splint Shoulder x-rays negative for dislocation. Discharge back to [facility] with a prescription for Motrin I discussed the physical exam findings, ancillary test results and final diagnoses with the patient. I answered all of the patient's questions. The patient was satisfied with the care received and felt comfortable with the discharge plan and treatment plan. The Patient agrees to follow up with the primary care physician/specialist within 24-72 hours. Return precautions were given. *DC/Admit/Observation/Transfer Diagnosis at time of Disposition: Left wrist injury Qualifiers: Encounter type: initial encounter Qualified Code(s): S69.92XA - Unspecified injury of left wrist, hand and finger(s), initial encounter - Discharge Dispostion Disposition: HOME Condition at time of disposition: Stable Decision to Admit order: No - Referrals Referrals: Mike Hutchins MD [Staff Physician] - - Patient Instructions Printed Discharge Instructions: DI for Wrist Sprain Additional Instructions: you were evaluated after fall today. Your x-rays of your wrist and shoulder were negative for fractures. Your placed in a wrist splint for wrist sprain of the left wrist. You may take Motrin 600 mg every 6 hours as needed for pain. Wear the splint for comfort. Follow up with orthopedics in 1 week if your symptoms do not improve. Return to the ER for any new or worsening symptoms. - Post Discharge Activity
== END 2019-01-05 21:23 | disposition home or self-care (01) ==
LOC: JERFT 17:19
DX: S69.92XA Unspecified injury of left wrist, hand and finger(s), initial encounter (principal); W01.0XXA Fall on same level from slipping, tripping and stumbling without subsequent striking against object, initial encounter; Y93.89 Activity, other specified; Y92.89 Other specified places as the place of occurrence of the external cause
CPT/HCPCS: 73030-TC-LT-FY; 73110-TC-LT-FY; 99281-25

== ENCOUNTER 2019-01-31 15:54 | Inpatient (IN) | payer OTHER ==
[2019-01-31 23:09] VITALS: BMI 29.4
--- NOTE | 2019-02-01 00:04 | HP ---
CIWA Score Nausea/Vomitin Muscle Tremors: 1-None Visible, but [place] Anxiety: 4-Mod. Anxious/Guarded Agitation: 4-Moderately Restless Paroxysmal Sweats: 3 Orientation: 1-Uncertain about Date Tacttile Disturbances: 0-None Auditory Disturbances: 0-None Visual Disturbances: 2-Mild Sensitivity Headache: 0-None Present CIWA-Ar Total Score: 17 - Admission Criteria OASAS Guidelines: Admission for Medically Managed Detox: Requires at least one of the followin. CIWA greater than 12 2. Seizures within the past 24 hours 3. Delirium tremens within the past 24 hours 4. Hallucinations within the past 24 hours 5. Acute intervention needed for co occurring medical disorder 6. Acute intervention needed for co occurring psychiatric disorder 7. Severe withdrawal that cannot be handled at a lower level of care (continued vomiting, continued diarrhea, abnormal vital signs) requiring intravenous medication and/or fluids 8. Patient presents the following: CIWA greater than 12 Admission Criteria Met: Admission criteria met Admission ROS S - [facility] Chief Complaint: C/O WITHDRAWAL SX'S Allergies/Adverse Reactions: Allergies Allergy/AdvReac Type Severity Reaction Status Date / Time No Known Allergies Allergy Verified 01/31/19 23:03 History of Present Illness: 48 Y.O. MALE WITH ALCOHOLISM HERE FOR DETOX. CLIENT IS SELF REFERRED. KNOW TO PROGRAM AMA FROM REHAB 4 WEEKS AGO AFTER COMPLETING DETOX. CLIENT REPORTS RELAPSING SOON AFTER DC, DRINKING ALCOHOL DAILY. LAST USE THIS MORNING DUE TO WITHDRAWAL SX'S. 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 REPORTS MOST RECENT CLEAN TIME 3 MONTHS RELAPSING 1 MONTH AGO. DENIES HX/O SEIZURES, BLACK OUTS, DT'S. DOMICILED, UNEMPLOYED, DENIES LEGALS PMHX-DENIES PSYCH- DENIES Exam Limitations: No Limitations - Ebola screening Have you traveled outside of the country in the last 21 days: No Have you had contact with anyone from an Ebola affected area: No Have you been sick,other than usual withdrawal symptoms: No Do you have a fever: No - Review of Systems Constitutional: Chills, Loss of Appetite, Malaise, Night Sweats, Changes in sleep EENT: reports: No Symptoms Reported Respiratory: reports: Shortness of Breath Cardiac: reports: No Symptoms Reported GI: reports: Poor Appetite : reports: No Symptoms Reported Musculoskeletal: reports: Back Pain (CHRONIC) Integumentary: reports: Flushing, Sweating Neuro: reports: Tremors Endocrine: reports: No Symptoms Reported Hematology: reports: No Symptoms Reported Psychiatric: reports: Orientated x3, Anxious Other Systems: Reviewed and Negative Patient History - Patient Medical History Hx Anemia: No Hx Asthma: No Hx Chronic Obstructive Pulmonary Disease (COPD): No Hx Cancer: No Hx Cardiac Disorders: No Hx Congestive Heart Failure: No Hx Hypertension: No Hx Hypercholesterolemia: No Hx Pacemaker: No HX Cerebrovascular Accident: No Hx Seizures: No Hx Dementia: No Hx Diabetes: No Hx Gastrointestinal Disorders: No Hx Liver Disease: No Hx Genitourinary Disorders: No Hx Sexually Transmitted Disorders: No Hx Renal Disease (ESRD): No Hx Thyroid Disease: No Hx Human Immunodeficiency Virus (HIV): No (Negative 2018) Hx Hepatitis C: No Hx Depression: No Hx Suicide Attempt: No Hx Bipolar Disorder: No Hx Schizophrenia: No Other Medical History: DENIES - Patient Surgical History Past Surgical History: Yes Hx Appendectomy: Yes (At age 5) - PPD History Previous Implant?: Yes Documented Results: Negative w/o proof Implanted On Prior R Admission?: No Results: 12/2018 NEG TBGO PPD to be Administered?: No - Smoking Cessation Smoking history: Current every day smoker Have you smoked in the past 12 months: Yes Aproximately how many cigarettes per day: 5 Cigars Per Day: 0 Hx Chewing Tobacco Use: No Initiated information on smoking cessation: Yes 'Breaking Loose' booklet given: 02/01/19 - Substance & Tx. History Hx Alcohol Use: Yes Hx Substance Use: Yes Substance Use Type: Alcohol, Cocaine Hx Substance Use Treatment: Yes ([facility]) - Substances abused Alcohol Substance route: Oral Frequency: Daily Amount used: 2 ( 6packs) Age of first use: 18 Date of last use: 01/31/19 Cocaine Substance route: Smoking Frequency: Daily Amount used: $150/day Age of first use: 34 Date of last use: 01/31/19 Family Disease History - Family Disease History Family Disease History: Other: Father (ALCOHOLIC) Admission Physical Exam S - Vital Signs Vital Signs: Vital Signs - 24 hr 01/31/19 23:04 Temperature 97.6 F Pulse Rate 68 Respiratory 18 Rate Blood Pressure 112/73 - Physical General Appearance: Yes: Mild Distress, Tremorous, Anxious HEENTM: Yes: EOMI, Normocephalic, Normal Voice, JEN, Pharynx Normal Respiratory: Yes: Chest Non-Tender, Lungs Clear, Normal Breath Sounds, No Respiratory Distress, No Accessory Muscle Use Neck: Yes: No masses,lesions,Nodules, Supple, Trachea in good position Breast: Yes: Breast Exam Deferred Cardiology: Yes: Regular Rhythm, Regular Rate, S1, S2 Abdominal: Yes: Non Tender, Increased Bowel Sounds Genitourinary: Yes: Within Normal Limits Back: Yes: Normal Inspection Musculoskeletal: Yes: full range of Motion, Gait Steady Extremities: Yes: Normal Capillary Refill, Normal Range of Motion, Non-Tender, Tremors Neurological: Yes: Fully Oriented, Alert, Motor Strength 5/5 Integumentary: Yes: Warm Lymphatic: Yes: Within Normal Limits - Diagnostic (1) Alcohol dependence with uncomplicated withdrawal Current Visit: Yes Status: Acute (2) Cocaine abuse, uncomplicated Current Visit: Yes Status: Acute (3) Nicotine dependence Current Visit: Yes Status: Chronic Qualifiers: Nicotine product type: cigarettes Substance use status: uncomplicated Qualified Code(s): F17.210 - Nicotine dependence, cigarettes, uncomplicated (4) Substance-induced sleep disorder Current Visit: Yes Status: Acute Cleared for Admission [facility] - Detox or Rehab [facility] Level of Care: Medically Managed Detox Regimen/Protocol: Librium Claeared for Rehab Admission: No Breathalyzer - Breathalyzer Breathalyzer: 0 Vital Signs - Vital Signs Vital signs refused: No Temperature: 97.6 F Temperature source: Oral Pulse Rate: 68 Respiratory Rate: 18 Blood Pressure: 112/73 BP Location: Right Arm Blood Pressure position: Sitting - Height Height: 5 ft 10 in - Weight Weight: 92.986 kg Weight measurement method: Standing scale - BMI Body Mass Index (BMI): 29.4 - Bowel Function Bowel Movement: No Urine Drug Screen - Test Device Lot number: [id number] Expiration date: 08/26/20 - Control Is test valid?: Yes - Results Drug screen NEGATIVE: No Urine drug screen results: KLARISSA-Cocaine, BAR-Barbiturates Inpatient Rehab Admission - Rehab Decision to Admit Inpatient rehab admission?: No
[2019-02-01] MEDS ORDERED: MELATONIN 5 MG TABLETS PO PRN (00:09)
[2019-02-01] MEDS ORDERED: ONDANSETRON *ODT* 4 MG TABLET SL PRN (00:09)
[2019-02-01] MEDS ORDERED: IBUPROFEN 400 MG TABLET (FP) PO PRN (00:09)
[2019-02-01] MEDS ORDERED: MAG HYDROX/AL HYDROX/SIMETH 30 ML UNIT-DOSE CUP PO PRN (00:09)
[2019-02-01] MEDS ORDERED: BISMUTH SUBSALICYLATE 524 MG/30 ML UD PO PRN (00:09)
[2019-02-01] MEDS ORDERED: guaiFENesin 200 MG/10 ML 10 ML UNIT-DOSE CUPS PO PRN (00:09)
[2019-02-01] MEDS ORDERED: MAGNESIUM HYDROX 2400MG/30ML ORAL SUSPENSION 30 ML CUP PO PRN (00:09)
[2019-02-01] MEDS ORDERED: P-EPHED 60MG/TRIPROLIDI 2.5MG TABLET PO PRN (00:09)
[2019-02-01] MEDS ORDERED: hydrOXYzine PAMOATE 25 MG CAPSULE (FP) PO PRN (00:09)
[2019-02-01] MEDS ORDERED: METHOCARBAMOL 500 MG TABLET PO PRN (00:09)
[2019-02-01] MEDS ORDERED: NICOTINE POLACRILEX 2 MG GUM BUC PRN (00:09)
[2019-02-01] MEDS ORDERED: DICYCLOMINE HCL 10 MG CAPSULE PO PRN (00:09)
[2019-02-01] MEDS ORDERED: chlordiazePOXIDE HCL 25 MG CAPSULE PO PRN (00:09)
[2019-02-01] MEDS ORDERED: ACETAMINOPHEN 325 MG TABLET (FP) PO PRN ×2 (00:09)
[2019-02-01] MEDS ORDERED: MAGNESIUM CITRATE 300 ML BOTTLE PO PRN (00:09)
[2019-02-01] MEDS ORDERED: MENTHOL/PHENOL 1 EACH UD MM PRN (00:09)
[2019-02-01] MEDS: chlordiazePOXIDE HCL 25 MG CAPSULE PO SCH ×4 (07:17→22:13)
--- NOTE | 2019-02-01 09:29 | CONSULT ---
[facility] Psychiatric Consult - Data Date of interview: 02/01/19 Admission source: [facility] Identifying data: Patient is a 48 year old single male, father of one, unemployed (denies receiving financial assistance. States his public assistance case was closed), and is currently homeless. This is one of multiple admissions for patient. Patient admitted to for alcohol and cocaine dependence. Substance Abuse History: Smoking Cessation. Smoking history: Current every day smoker. Have you smoked in the past 12 months: Yes. Aproximately how many cigarettes per day: 5. Cigars Per Day: 0. Hx Chewing Tobacco Use: No. Initiated information on smoking cessation: Yes. 'Breaking Loose' booklet given : 02/01/19. - Substance & Tx. History. Hx Alcohol Use: Yes. Hx Substance Use : Yes. Substance Use Type: Alcohol, Cocaine. Hx Substance Use Treatment: Yes ( [facility]). - Substances abused. Alcohol. Substance route: Oral. Frequency: Daily. Amount used: 2 ( 6packs). Age of first use: 18. Date of last use: 11/14. Cocaine. Substance route: Smoking. Frequency: Daily. Amount used: $150/day. Age of first use: 34. Date of last use: 01/31/19 Medical History: Appendectomy Psychiatric History: Patient denies h/o psychiatric hospitalization, outpatient care, and suicide attempt. At present he reports experiencing difficulty sleeping. He reports accepting seroquel or trazodone for insomnia in other detox /rehab settings. Physical/Sexual Abuse/Trauma History: denies. Mental Status Exam - Mental Status Exam Alert and Oriented to: Time, Place, Person Cognitive Function: Good Patient Appearance: Well Groomed Mood: Euthymic Affect: Mood Congruent Patient Behavior: Cooperative Speech Pattern: Appropriate Voice Loudness: Normal Thought Process: Goal Oriented Thought Disorder: Not Present Hallucinations: Denies Suicidal Ideation: Denies Homicidal Ideation: Denies Insight/Judgement: Poor Sleep: Poorly Appetite: Fair Muscle strength/Tone: Normal Gait/Station: Normal Psychiatric Findings - Problem List ([place] 1, 2,3) (1) Alcohol dependence with uncomplicated withdrawal Current Visit: Yes Status: Acute (2) Cocaine abuse, uncomplicated Current Visit: Yes Status: Acute (3) Substance-induced sleep disorder Current Visit: Yes Status: Acute (4) Nicotine dependence Current Visit: Yes Status: Chronic Qualifiers: Nicotine product type: cigarettes Substance use status: uncomplicated Qualified Code(s): F17.210 - Nicotine dependence, cigarettes, uncomplicated - Initial Treatment Plan Initial Treatment Plan: Psychoeducation provided. Detoxification in progress. Will order Seroquel 50mg HS (patients request). Benefits and side effects discussed. Verbal consent given.
[2019-02-01] MEDS: PRENATAL VITAMINS W/ FOLIC ACID TABLET (FP) PO SCH (10:18)
[2019-02-01] MEDS: NICOTINE 14 MG/24 HOURS TOPICAL PATCH TD SCH (10:19)
[2019-02-01 10:57] LABS: HEMATOCRIT 39.8 % (35.4-49); HEMOGLOBIN 13.1 GM/dL (11.7-16.9); MCH 29.2 pg (25.7-33.7); MEAN CELL VOLUME 88.6 fl (80-96); MEAN PLT VOLUME 10.2 fl (7.5-11.1); PLATELET COUNT 222 K/MM3 (134-434); RBC 4.49 M/mm3 (4.00-5.60); RDW 14.5 % (11.9-15.9); WHITE BLOOD COUNT 4.2 K/mm3 (4.0-10.0)
[2019-02-01 11:30] LABS: ALBUMIN 3.2 g/dl (3.4-5.0); CALCIUM 8.2 mg/dL (8.5-10.1); TOT PROT 6.7 g/dl (6.4-8.2)
--- NOTE | 2019-02-01 11:36 | PN ---
S CIWA - CIWA Score Nausea/Vomitin-Mild Nausea/No Vomiting Muscle Tremors: 3 Anxiety: 2 Agitation: 1-Slight > Activity Paroxysmal Sweats: 1-Minimal Palms Moist Orientation: 2-Disoriented Date<2 days Tacttile Disturbances: 1-Very Mild Itch/Numbness Auditory Disturbances: 0-None Visual Disturbances: 0-None Headache: 1-Very Mild CIWA-Ar Total Score: 12 BHS Progress Note (SOAP) Subjective: 48 years old male admitted on 01/31/19 for acute alcohol withdrawal sx managmenet one 25 mg librium doing well with librium detox regimen resting on bed tired prefers to stay in bed today hesitate to discuss alcohol recovery process Objective: 02/01/19 11:35 Vital Signs Temperature 97.0 F L 02/01/19 09:18 Pulse Rate 63 02/01/19 09:18 Respiratory Rate 18 02/01/19 09:18 Blood Pressure 104/66 02/01/19 09:18 O2 Sat by Pulse Oximetry (%) Laboratory Last Values WBC 4.2 K/mm3 (4.0-10.0) 02/01/19 07:00 RBC 4.49 M/mm3 (4.00-5.60) 02/01/19 07:00 Hgb 13.1 GM/dL (11.7-16.9) 02/01/19 07:00 Hct 39.8 % (35.4-49) 02/01/19 07:00 MCV 88.6 fl (80-96) 02/01/19 07:00 MCH 29.2 pg (25.7-33.7) 02/01/19 07:00 MCHC 33.0 g/dl (32.0-35.9) 02/01/19 07:00 RDW 14.5 % (11.9-15.9) 02/01/19 07:00 Plt Count 222 K/MM3 (134-434) 02/01/19 07:00 MPV 10.2 fl (7.5-11.1) 02/01/19 07:00 Sodium 142 mmol/L (136-145) 02/01/19 07:00 Potassium 4.0 mmol/L (3.5-5.1) 02/01/19 07:00 Chloride 105 mmol/L (98-107) 02/01/19 07:00 Carbon Dioxide 31 mmol/L (21-32) 02/01/19 07:00 Anion Gap 6 MMOL/L (8-16) L 02/01/19 07:00 BUN 13.0 mg/dL (7-18) 02/01/19 07:00 Creatinine 1.0 mg/dL (0.55-1.3) 02/01/19 07:00 Est GFR (CKD-EPI)AfAm 102.69 02/01/19 07:00 Est GFR (CKD-EPI)NonAf 88.61 02/01/19 07:00 Random Glucose 93 mg/dL (74-106) 02/01/19 07:00 Calcium 8.2 mg/dL (8.5-10.1) L 02/01/19 07:00 Total Bilirubin 1.0 mg/dL (0.2-1) 02/01/19 07:00 AST 19 U/L (15-37) 02/01/19 07:00 ALT 23 U/L (13-61) 02/01/19 07:00 Alkaline Phosphatase 70 U/L (45-117) 02/01/19 07:00 Total Protein 6.7 g/dl (6.4-8.2) 02/01/19 07:00 Albumin 3.2 g/dl (3.4-5.0) L 02/01/19 07:00 lab noted Assessment: 02/01/19 11:35 alcohol withdrawal sx Plan: continue alcohol detox
[2019-02-01 21:24] LABS: URINE APPEARANCE TURBID; URINE BILIRUBIN NEGATIVE (NEGATIVE); URINE COLOR YELLOW; URINE GLUCOSE (UA) NEGATIVE (NEGATIVE); URINE KETONE NEGATIVE (NEGATIVE); URINE LEUK ESTERASE NEGATIVE (NEGATIVE); URINE NITRITE NEGATIVE (NEGATIVE); URINE PROTEIN NEGATIVE (NEGATIVE); URINE UROBILINOGEN 0.2 mg/dL (0.2-1.0)
[2019-02-01] MEDS: THIAMINE HCL 100 MG TABLET (FP) PO SCH (22:13)
[2019-02-01] MEDS: QUEtiapine FUMARATE 50 MG TABLET PO SCH (22:13)
[2019-02-02] MEDS: chlordiazePOXIDE HCL 25 MG CAPSULE PO SCH ×4 (06:44→22:15)
[2019-02-02] MEDS: NICOTINE 14 MG/24 HOURS TOPICAL PATCH TD SCH (10:15)
[2019-02-02] MEDS: PRENATAL VITAMINS W/ FOLIC ACID TABLET (FP) PO SCH (10:15)
--- NOTE | 2019-02-02 15:51 | PN ---
[facility] CIWA - CIWA Score Nausea/Vomitin-Mild Nausea/No Vomiting Muscle Tremors: 3 Anxiety: 2 Agitation: 2 Paroxysmal Sweats: 1-Minimal Palms Moist Orientation: 0-Oriented Tacttile Disturbances: 0-None Auditory Disturbances: 0-None Visual Disturbances: 0-None Headache: 0-None Present CIWA-Ar Total Score: 9 S Progress Note (SOAP) Subjective: doing well with librium detox regimen less tremor mild anxiety sleep better at night Objective: 02/02/19 15:51 Vital Signs Temperature 96.9 F L 02/02/19 09:42 Pulse Rate 72 02/02/19 09:42 Respiratory Rate 18 02/02/19 09:42 Blood Pressure 110/76 02/02/19 09:42 O2 Sat by Pulse Oximetry (%) Laboratory Last Values WBC 4.2 K/mm3 (4.0-10.0) 02/01/19 07:00 RBC 4.49 M/mm3 (4.00-5.60) 02/01/19 07:00 Hgb 13.1 GM/dL (11.7-16.9) 02/01/19 07:00 Hct 39.8 % (35.4-49) 02/01/19 07:00 MCV 88.6 fl (80-96) 02/01/19 07:00 MCH 29.2 pg (25.7-33.7) 02/01/19 07:00 MCHC 33.0 g/dl (32.0-35.9) 02/01/19 07:00 RDW 14.5 % (11.9-15.9) 02/01/19 07:00 Plt Count 222 K/MM3 (134-434) 02/01/19 07:00 MPV 10.2 fl (7.5-11.1) 02/01/19 07:00 Sodium 142 mmol/L (136-145) 02/01/19 07:00 Potassium 4.0 mmol/L (3.5-5.1) 02/01/19 07:00 Chloride 105 mmol/L (98-107) 02/01/19 07:00 Carbon Dioxide 31 mmol/L (21-32) 02/01/19 07:00 Anion Gap 6 MMOL/L (8-16) L 02/01/19 07:00 BUN 13.0 mg/dL (7-18) 02/01/19 07:00 Creatinine 1.0 mg/dL (0.55-1.3) 02/01/19 07:00 Est GFR (CKD-EPI)AfAm 102.69 02/01/19 07:00 Est GFR (CKD-EPI)NonAf 88.61 02/01/19 07:00 Random Glucose 93 mg/dL (74-106) 02/01/19 07:00 Calcium 8.2 mg/dL (8.5-10.1) L 02/01/19 07:00 Total Bilirubin 1.0 mg/dL (0.2-1) 02/01/19 07:00 AST 19 U/L (15-37) 02/01/19 07:00 ALT 23 U/L (13-61) 02/01/19 07:00 Alkaline Phosphatase 70 U/L (45-117) 02/01/19 07:00 Total Protein 6.7 g/dl (6.4-8.2) 02/01/19 07:00 Albumin 3.2 g/dl (3.4-5.0) L 02/01/19 07:00 Urine Color Yellow 02/01/19 17:50 Urine Appearance Turbid 02/01/19 17:50 Urine pH 5.0 (5.0-8.0) 02/01/19 17:50 Ur Specific [place] 1.037 (1.010-1.035) H 02/01/19 17:50 Urine Protein Negative (NEGATIVE) 02/01/19 17:50 Urine Glucose (UA) Negative (NEGATIVE) 02/01/19 17:50 Urine Ketones Negative (NEGATIVE) 02/01/19 17:50 Urine Blood Negative (NEGATIVE) 02/01/19 17:50 Urine Nitrite Negative (NEGATIVE) 02/01/19 17:50 Urine Bilirubin Negative (NEGATIVE) 02/01/19 17:50 Urine Urobilinogen 0.2 mg/dL (0.2-1.0) 02/01/19 17:50 Ur Leukocyte Esterase Negative (NEGATIVE) 02/01/19 17:50 RPR Titer Nonreactive (NONREACTIVE) 02/02/19 06:30 lab noted Assessment: 02/02/19 15:52 alcohol withdrawal sx Plan: continue alcohol detox
[2019-02-02] MEDS: THIAMINE HCL 100 MG TABLET (FP) PO SCH (22:15)
[2019-02-02] MEDS: QUEtiapine FUMARATE 50 MG TABLET PO SCH (22:15)
[2019-02-03] MEDS ORDERED: chlordiazePOXIDE HCL 10 MG CAPSULE PO PRN
[2019-02-03] MEDS: chlordiazePOXIDE HCL 10 MG CAPSULE PO SCH ×4 (07:11→22:06)
[2019-02-03] MEDS: PRENATAL VITAMINS W/ FOLIC ACID TABLET (FP) PO SCH (10:21)
[2019-02-03] MEDS: NICOTINE 14 MG/24 HOURS TOPICAL PATCH TD SCH (10:21)
--- NOTE | 2019-02-03 14:33 | PN ---
S CIWA - CIWA Score Nausea/Vomitin-No Nausea/No Vomiting Muscle Tremors: None Anxiety: 3 Agitation: 1-Slight > Activity Paroxysmal Sweats: No Perspiration Orientation: 0-Oriented Tacttile Disturbances: 1-Very Mild Itch/Numbness Auditory Disturbances: 2-Mild Harshness/Frighten Visual Disturbances: 0-None Headache: 0-None Present CIWA-Ar Total Score: 7 BHS Progress Note (SOAP) Subjective: Fatigue, Anxious. Objective: PATIENT A & O X 3. IN NO ACUTE DISTRESS. 02/03/19 14:32 Vital Signs Temperature 98.6 F 02/03/19 13:33 Pulse Rate 82 02/03/19 13:33 Respiratory Rate 18 02/03/19 13:33 Blood Pressure 100/60 02/03/19 13:33 O2 Sat by Pulse Oximetry (%) Laboratory Tests 02/01/19 02/01/19 02/01/19 07:00 07:00 17:50 WBC 4.2 RBC 4.49 Hgb 13.1 Hct 39.8 MCV 88.6 MCH 29.2 MCHC 33.0 RDW 14.5 Plt Count 222 MPV 10.2 Sodium 142 Potassium 4.0 Chloride 105 Carbon Dioxide 31 Anion Gap 6 L BUN 13.0 Creatinine 1.0 Est GFR (CKD-EPI)AfAm 102.69 Est GFR (CKD-EPI)NonAf 88.61 Random Glucose 93 Calcium 8.2 L Total Bilirubin 1.0 AST 19 ALT 23 Alkaline Phosphatase 70 Total Protein 6.7 Albumin 3.2 L Urine Color Yellow Urine Appearance Turbid Urine pH 5.0 Ur Specific [place] 1.037 H Urine Protein Negative Urine Glucose (UA) Negative Urine Ketones Negative Urine Blood Negative Urine Nitrite Negative Urine Bilirubin Negative Urine Urobilinogen 0.2 Ur Leukocyte Esterase Negative RPR Titer 02/02/19 06:30 WBC RBC Hgb Hct MCV MCH MCHC RDW Plt Count MPV Sodium Potassium Chloride Carbon Dioxide Anion Gap BUN Creatinine Est GFR (CKD-EPI)AfAm Est GFR (CKD-EPI)NonAf Random Glucose Calcium Total Bilirubin AST ALT Alkaline Phosphatase Total Protein Albumin Urine Color Urine Appearance Urine pH Ur Specific [place] Urine Protein Urine Glucose (UA) Urine Ketones Urine Blood Urine Nitrite Urine Bilirubin Urine Urobilinogen Ur Leukocyte Esterase RPR Titer Nonreactive LABS NOTED. Assessment: 02/03/19 14:33 WITHDRAWAL SYMPTOMS. Plan: CONTINUE DETOX.
[2019-02-03] MEDS: QUEtiapine FUMARATE 50 MG TABLET PO SCH (22:06)
[2019-02-03] MEDS: THIAMINE HCL 100 MG TABLET (FP) PO SCH (22:06)
[2019-02-04] MEDS ORDERED: chlordiazePOXIDE HCL 10 MG CAPSULE PO SCH (05:00)
[2019-02-04 09:29] VITALS: BP 125/74; PULSE 82; TEMP 96.4
[2019-02-04] MEDS: PRENATAL VITAMINS W/ FOLIC ACID TABLET (FP) PO SCH (10:12)
[2019-02-04] MEDS: NICOTINE 14 MG/24 HOURS TOPICAL PATCH TD SCH (10:12)
--- NOTE | 2019-02-04 17:58 | PN ---
S CIWA - CIWA Score Nausea/Vomitin-No Nausea/No Vomiting Muscle Tremors: None Anxiety: 0-No Anxiety, at Ease Agitation: 0-Normal Activity Paroxysmal Sweats: No Perspiration Orientation: 0-Oriented Tacttile Disturbances: 0-None Auditory Disturbances: 0-None Visual Disturbances: 0-None Headache: 0-None Present CIWA-Ar Total Score: 0 BHS Progress Note (SOAP) Subjective: Patient denies current Withdrawal / Detox symptoms and reports that he feels well overall at this time. Objective: PATIENT A & O X 3, OBSERVED AMBULATING ON UNIT UNASSISTED. IN NO ACUTE DISTRESS. 02/04/19 17:56 Vital Signs Temperature 96.4 F L 02/04/19 09:28 Pulse Rate 82 02/04/19 09:28 Respiratory Rate 18 02/04/19 09:28 Blood Pressure 125/74 02/04/19 09:28 O2 Sat by Pulse Oximetry (%) Laboratory Tests 02/01/19 02/01/19 02/01/19 07:00 07:00 17:50 WBC 4.2 RBC 4.49 Hgb 13.1 Hct 39.8 MCV 88.6 MCH 29.2 MCHC 33.0 RDW 14.5 Plt Count 222 MPV 10.2 Sodium 142 Potassium 4.0 Chloride 105 Carbon Dioxide 31 Anion Gap 6 L BUN 13.0 Creatinine 1.0 Est GFR (CKD-EPI)AfAm 102.69 Est GFR (CKD-EPI)NonAf 88.61 Random Glucose 93 Calcium 8.2 L Total Bilirubin 1.0 AST 19 ALT 23 Alkaline Phosphatase 70 Total Protein 6.7 Albumin 3.2 L Urine Color Yellow Urine Appearance Turbid Urine pH 5.0 Ur Specific [place] 1.037 H Urine Protein Negative Urine Glucose (UA) Negative Urine Ketones Negative Urine Blood Negative Urine Nitrite Negative Urine Bilirubin Negative Urine Urobilinogen 0.2 Ur Leukocyte Esterase Negative RPR Titer 02/02/19 06:30 WBC RBC Hgb Hct MCV MCH MCHC RDW Plt Count MPV Sodium Potassium Chloride Carbon Dioxide Anion Gap BUN Creatinine Est GFR (CKD-EPI)AfAm Est GFR (CKD-EPI)NonAf Random Glucose Calcium Total Bilirubin AST ALT Alkaline Phosphatase Total Protein Albumin Urine Color Urine Appearance Urine pH Ur Specific [place] Urine Protein Urine Glucose (UA) Urine Ketones Urine Blood Urine Nitrite Urine Bilirubin Urine Urobilinogen Ur Leukocyte Esterase RPR Titer Nonreactive LABS NOTED. Assessment: 02/04/19 17:56 COMPLETION OF DETOX REGIMEN. Plan: SINCE PATIENT DENIES CURRENT WITHDRAWAL / DETOX SYMPTOMS AND REPORTS THAT HE FEELS WELL OVERALL, AT PATIENTS REQUEST, HE WAS GRANTED AN EARLY DISCHARGE FROM DETOX UNIT TODAY SO THAT HE MAY PROCEED ON TO AFTERCARE PLAN - [facility] ([place], [place]).
--- NOTE | 2019-02-04 18:02 | DS ---
[facility] Detox Discharge Summary Admission Date: 01/31/19 Discharge Date: 02/04/19 - History Present History: Alcohol Dependence, Cocaine Dependence Additional Comments: PATIENT DENIES CURRENT WITHDRAWAL / DETOX SYMPTOMS AND REPORTS THAT HE FEELS WELL OVERALL AT TIME OF DISCHARGE FROM DETOX UNIT. [facility] ([place], [place]) FOR AFTERCARE. PATIENT WAS DISCHARGED FORM DETOX UNIT IN STABLE MEDICAL CONDITION. Pertinent Past History: Nicotine Dependence. - Physical Exam Results Vital Signs: Vital Signs Temperature 96.4 F L 02/04/19 09:28 Pulse Rate 82 02/04/19 09:28 Respiratory Rate 18 02/04/19 09:28 Blood Pressure 125/74 02/04/19 09:28 O2 Sat by Pulse Oximetry (%) Pertinent Admission Physical Exam Findings: WITHDRAWAL SYMPTOMS. Laboratory Tests 02/01/19 02/01/19 02/01/19 07:00 07:00 17:50 WBC 4.2 RBC 4.49 Hgb 13.1 Hct 39.8 MCV 88.6 MCH 29.2 MCHC 33.0 RDW 14.5 Plt Count 222 MPV 10.2 Sodium 142 Potassium 4.0 Chloride 105 Carbon Dioxide 31 Anion Gap 6 L BUN 13.0 Creatinine 1.0 Est GFR (CKD-EPI)AfAm 102.69 Est GFR (CKD-EPI)NonAf 88.61 Random Glucose 93 Calcium 8.2 L Total Bilirubin 1.0 AST 19 ALT 23 Alkaline Phosphatase 70 Total Protein 6.7 Albumin 3.2 L Urine Color Yellow Urine Appearance Turbid Urine pH 5.0 Ur Specific [place] 1.037 H Urine Protein Negative Urine Glucose (UA) Negative Urine Ketones Negative Urine Blood Negative Urine Nitrite Negative Urine Bilirubin Negative Urine Urobilinogen 0.2 Ur Leukocyte Esterase Negative RPR Titer 02/02/19 06:30 WBC RBC Hgb Hct MCV MCH MCHC RDW Plt Count MPV Sodium Potassium Chloride Carbon Dioxide Anion Gap BUN Creatinine Est GFR (CKD-EPI)AfAm Est GFR (CKD-EPI)NonAf Random Glucose Calcium Total Bilirubin AST ALT Alkaline Phosphatase Total Protein Albumin Urine Color Urine Appearance Urine pH Ur Specific [place] Urine Protein Urine Glucose (UA) Urine Ketones Urine Blood Urine Nitrite Urine Bilirubin Urine Urobilinogen Ur Leukocyte Esterase RPR Titer Nonreactive LABS NOTED. - Treatment Hospital Course: Detox Protocol Followed, Detoxed Safely, Responded well, Discharged Condition Good Patient has Accepted a Rehab Referral to: PT. GOING TO THE [facility] ([place] - Medication Discharge Medications: Ambulatory Orders NK [No Known Home Medication] 12/26/18 - Diagnosis (1) Alcohol dependence with uncomplicated withdrawal Status: Acute (2) Cocaine abuse, uncomplicated Status: Acute (3) Substance-induced sleep disorder Status: Acute (4) Nicotine dependence Status: Chronic Qualifiers: Nicotine product type: cigarettes Substance use status: uncomplicated Qualified Code(s): F17.210 - Nicotine dependence, cigarettes, uncomplicated - AMA Did Patient Leave Against Medical Advice: No
[2019-02-05] MEDS ORDERED: chlordiazePOXIDE HCL 10 MG CAPSULE PO ONE (05:00)
== END 2019-02-04 11:30 | disposition home or self-care (01) | DRG 774 ==
LOC: YASAS 15:54 → Y3N 23:57
PROVIDERS: ADMIT Surgery; ATTEND Surgery
PROC: HZ2ZZZZ Detoxification Services for Substance Abuse Treatment (ICD-10-PCS; principal; 2019-01-31)
DX: F10.230 Alcohol dependence with withdrawal, uncomplicated (principal); F14.10 Cocaine abuse, uncomplicated; F17.210 Nicotine dependence, cigarettes, uncomplicated; F19.282 Other psychoactive substance dependence with psychoactive substance-induced sleep disorder
CPT/HCPCS: 36415; 80053; 81003; 85027; 86593